=== PATIENT | female | born 1960 | race Caucasian/White ===

== ENCOUNTER 2019-08-06 14:49 | Emergency (ER) | payer MEDICAID, OTHER ==
[~2019-08-06] VITALS: Ht 162.6 cm; Wt 49.0 kg
[2019-08-06] MEDS ORDERED: BENZ-16 PO (15:29)
[2019-08-06] MEDS ORDERED: AZIT-31 PO (15:29)
[2019-08-06 15:37] VITALS: BP 149/74
== END 2019-08-06 15:38 | disposition home or self-care (01) ==
LOC: ER 14:49
DX: J06.9 Acute upper respiratory infection, unspecified (principal); J44.9 Chronic obstructive pulmonary disease, unspecified; R19.7 Diarrhea, unspecified; Z87.891 Personal history of nicotine dependence; Z79.899 Other long term (current) drug therapy
CPT/HCPCS: 99283

== ENCOUNTER 2023-12-31 08:54 | Emergency (ER) | payer MEDICARE, MEDICAID ==
[~2023-12-31] VITALS: Ht 162.6 cm; Wt 55.9 kg
[2023-12-31 09:48] VITALS: TEMP 98.6
[2023-12-31 09:59] LABS: BASOPHILS % (AUTO) 0.2 % (0-1); EOSINOPHILS % (AUTO) 0.2 % (0-6); HEMATOCRIT 40.4 % (35.0-45.0); HEMOGLOBIN 13.5 g/dl (12.0-16.0); LYMPHOCYTES # (AUTO) 1.5 X10'3 (1.1-4.8); LYMPHOCYTES % (AUTO) 10.8 % (21-51); MEAN CORPUSCULAR HGB CONC 33.5 g/dL (33.0-36.5); MEAN CORPUSCULAR VOLUME 92.5 FL (78-98); MEAN PLATELET VOLUME 7.8 FL (7.4-10.4); MONOCYTES # (AUTO) 0.8 X10'3 (0-0.9); MONOCYTES % (AUTO) 5.6 % (2-12); NEUTROPHILS # (AUTO) 11.4 X10'3 (1.8-7.7); NEUTROPHILS % (AUTO) 83.2 % (42-75); PLATELET COUNT 240 X10'3 (140-440); RED BLOOD COUNT 4.36 X10'6 (4.20-5.60); RED CELL DISTRIBUTION WIDTH 14.4 % (11.5-14.5); WHITE BLOOD COUNT 13.7 X10'3 (4.5-11.0)
[2023-12-31 10:11] LABS: ALANINE AMINOTRANSFERASE 38 U/L (12-78); ALBUMIN 3.8 G/DL (3.4-5.0); ALKALINE PHOSPHATASE 68 IU/L (46-116); ANION GAP 11 (8-16); ASPARTATE AMINO TRANSFERASE 14 U/L (10-37); BILIRUBIN,TOTAL 0.7 MG/DL (0.1-1.0); BLOOD UREA NITROGEN 19 MG/DL (7-18); CALCIUM 9.4 MG/DL (8.5-10.1); CHLORIDE 103 MMOL/L (99-107); CREATININE 0.73 MG/DL (0.40-0.90); GLUCOSE 119 MG/DL (70-104); LIPASE 26 U/L (16-77); POTASSIUM 3.7 MMOL/L (3.5-5.1); SODIUM 142 MMOL/L (135-145); TOTAL CARBON DIOXIDE 28.3 MMOL/L (24-32); TOTAL PROTEIN 7.8 G/DL (6.4-8.2); eCRCL 69 ML/MIN; eGFR 81 ML/MIN
[2023-12-31 10:17] LABS: URINE HCG NEGATIVE (NEG)
[2023-12-31 10:27] LABS: BILIRUBIN,URINE SMALL (Neg); CLARITY,URINE CLOUDY (Clear); COLOR,URINE YELLOW (Yellow); GLUCOSE, URINE NEGATIVE (Neg); KETONES,URINE NEGATIVE (Neg); LEUKOCYTE ESTERASE ,URINE NEGATIVE (Neg); NITRITES, URINE POSITIVE (Neg); OCCULT BLOOD,URINE LARGE (Neg); PH,URINE 5.5 (4.8-8.0); PROTEIN,URINE NEGATIVE (Neg); UROBILINOGEN,URINE 0.2 E.U/dL (0.2-1.0)
[2023-12-31 10:28] LABS: UA COLLECTION TYPE CLN CATCH MIDSTREAM
[2023-12-31 10:36] LABS: BACTERIA,URINE 4+ /HPF (Neg); RBC,URINE TNTC /HPF (0-2); SQUAMOUS EPITHELIAL CELL,UR MODERATE /LPF (FEW)
[2023-12-31 10:37] LABS: CAL OXALATE CRYSTALS FEW /HPF (NEGATIVE)
[2023-12-31 10:38] LABS: AMORPHOUS URATES 1+; TRANSITIONAL EPI CELLS,URINE FEW /HPF
[2023-12-31] MEDS ORDERED: SULF1TAB49 PO (10:46)
[2023-12-31 10:56] VITALS: BP 148/81; PULSE 85; RESP 16; O2SAT 95
== END 2023-12-31 10:59 | disposition home or self-care (01) ==
LOC: ER 08:55
DX: N39.0 Urinary tract infection, site not specified (principal); R31.9 Hematuria, unspecified; J44.9 Chronic obstructive pulmonary disease, unspecified; Z79.2 Long term (current) use of antibiotics
CPT/HCPCS: 36415; 80053; 81001; 81025; 83690; 85025; 87077; 87088; 87186; 99284